=== PATIENT | female | born 1995 | race Caucasian/White ===

== ENCOUNTER 2017-06-22 17:30 | Emergency (ER) | payer OTHER ==
[~2017-06-22] VITALS: Ht 165.1 cm; Wt 113.6 kg
[2017-06-22] MEDS ORDERED: KEPP10002 PO (17:39)
[2017-06-22] MEDS ORDERED: IPRATROPIUM 0.5MG/ALBUTEROL 2.5MG INH SOL UD 3ML (DUONEB)(J7620) NEB ONE (18:15)
--- NOTE | 2017-06-22 19:04 | REP ---
Clinical: Shortness of breath . Comparison: None . Technique: PA and lateral. Findings: The mediastinum and cardiac silhouette are normal. The lung rodrigues are clear and without acute consolidation, effusion, or pneumothorax. The visualized proximal portion of the left humerus demonstrates mottled heterogeneous sclerotic changes which require correlation to exclude underlying pathology. Impression: 1. No acute cardiopulmonary process. 2. Irregular sclerotic changes to the medullary cavity of the visualized proximal left humerus. Correlation is recommended. Signed by Xander Sahu MD 06/22/2017 06:55 P
[2017-06-22] MEDS ORDERED: SUDA30TA PO (19:11)
[2017-06-22] MEDS ORDERED: MUCI600T37 PO (19:11)
[2017-06-22] MEDS ORDERED: FLON1SPR (19:11)
[2017-06-22 19:17] VITALS: BP 141/66
== END 2017-06-22 19:49 | disposition home or self-care (01) ==
LOC: M ED 17:30
DX: J20.9 Acute bronchitis, unspecified (principal); H61.23 Impacted cerumen, bilateral; Z72.0 Tobacco use

== ENCOUNTER → 2025-08-20 | Outpatient (CLI) | payer OTHER ==
[~2025-08-20] MED LIST: FLON1SPR; KEPP10002 PO; MUCI600T37 PO; SUDA30TA PO
== END ==
LOC: M PLARAD 10:17
PROVIDERS: ATTEND Student in an Organized Health Care Education/Training Program
DX: G35.D Multiple sclerosis, unspecified (principal); M50.31 Other cervical disc degeneration, high cervical region